=== PATIENT | male | born 1945 | race Caucasian/White ===

== ENCOUNTER → 2017-03-08 | Outpatient (CLI) | payer MEDICARE, BC ==
[2017-03-08] MEDS: GADOBUTROL 7.5 MMOL/7.5 ML VIAL IV ×2 (13:25)
== END | disposition home or self-care (01) ==
LOC: KCIC MRI 11:53
DX: M75.102 Unspecified rotator cuff tear or rupture of left shoulder, not specified as traumatic (principal)
CPT/HCPCS: 73223; A9585